=== PATIENT | female | born 1980 | race Caucasian/White ===

== ENCOUNTER 2017-12-09 19:40 | Emergency (ER) | payer OTHER ==
[~2017-12-09] VITALS: Ht 168.9 cm; Wt 192.7 kg
[~2017-12-09 19:40] MED LIST: ASPI81TA23 PO; CLIN300C5 PO; TYLETAB34 PO
[2017-12-09 19:50] VITALS: BP 194/91; PULSE 95; RESP 18; TEMP 98.4; O2SAT 95
--- NOTE | 2017-12-09 20:55 | PD ---
HPI Chief Complaint: Skin Problem Time Seen by Provider: 20:26 Travel History International Travel<30 days: No Contact w/Intl Traveler<30days: No Traveled to known affect area: No History of Present Illness HPI Patient 37-year-old female presents emergency department for evaluation of skin reddening to the right lower leg. Patient states been there for about 2 week, she was initially started on Keflex when I did not work she went to [facility] and she was started on clindamycin. She states is been taking it for about a week and has had no relief. She was told that if her symptoms warrant starting to get better that she should come here for consideration of IV antibiotics. No fevers no cough no congestion no history of long trips no history of DVTs. Patient states the first physician who prescribed her Keflex also did an ultrasound which showed no DVT and that was 2 weeks ago. States symptoms are mild, associated with pruritus, right lower leg, context as above PFSH Past Medical History Asthma: Yes Bipolar Disorder: Yes Anxiety: Yes Depression: Yes Diminished Hearing: No Fibromyalgia: Yes Hypertension: Yes ?: Not Ovarian Cysts: Yes Past Surgical History Cholecystectomy: Yes Other Surgery: Yes Social History Alcohol Use: No Tobacco Use: No Substance Use: No Allergies-Medications (Allergen,Severity, Reaction): Coded Allergies: No Known Allergies (Unverified , 12/03/17) Reported Meds & Prescriptions Reported Meds & Active Scripts Active Tylenol-Codeine #3 (Acetaminophen-Codeine) 300-30 mg Tab 1-2 Tab PO Q6H PRN Aspirin EC (Aspirin) 81 Mg Tabdr 162 Mg PO DAILY 14 Days Clindamycin (Clindamycin HCl) 300 Mg Cap 300 Mg PO TID 7 Days Review of Systems Except as stated in HPI: all other systems reviewed are Neg Physical Exam Narrative GENERAL: Well-nourished, well-developed patient. Morbidly obese SKIN: Focused skin assessment warm/dry. There is a small slightly discolored area of the right lower extremity over the lateral tibia, it does jose daniel when palpated but certainly is not warm to touch. Could represent a very mild cellulitis. I do not see any fluid collection or skin breakage areas. HEAD: Normocephalic. EYES: No scleral icterus. No injection or drainage. NECK: Supple, trachea midline. No JVD or lymphadenopathy. CARDIOVASCULAR: Regular rate and rhythm without murmurs, gallops, or rubs. RESPIRATORY: Breath sounds equal bilaterally. No accessory muscle use. GASTROINTESTINAL: Abdomen soft, non-tender, nondistended. MUSCULOSKELETAL: No cyanosis, difficult to assess if the patient's leg calibers are different in size secondary to her body habitus. BACK: Nontender without obvious deformity. No CVA tenderness. Data Data Last Documented VS Vital Signs Date Time Temp Pulse Resp B/P (MAP) Pulse Ox O2 Delivery O2 Flow Rate FiO2 12/09/17 19:50 98.4 95 18 194/91 (125) 95 Orders Orders Bedside Glucose [email or web address] (12/09/17 20:39) MDM Medical Decision Making Medical Screen Exam Complete: Yes Emergency Medical Condition: Yes Differential Diagnosis Cellulitis, sepsis highly unlikely, DVT, acanthosis nigricans. Narrative Course Patient roomed in the emergency department, she did have an ultrasound 2 weeks ago but still having symptoms I think warrants a repeat ultrasound at this time , also need to consider diabetes in this patient and have ordered a bedside glucose. My plan was if ultrasound was negative the patient appears well would add doxycycline and topical antifungal to follow-up with a primary care physician or safety admin assistant. She certainly is not septic and does not need any additional workup, consideration was given the IV antibiotics including Dalvance but I think that this is unwarranted at this time. Unfortunately prior to any of these studies being done the patient eloped stating that she had an emergency at home. I had no further chance to res counselor patient. Diagnosis Primary Impression: Rash Disposition: 07 AGAINST MEDICAL ADVICE (Eloped) Condition: Stable Bryon Omer MD Dec 09, 2017 20:55
== END 2017-12-09 22:55 | disposition left against medical advice (07) ==
LOC: NEPD 19:40
DX: R21 Rash and other nonspecific skin eruption (principal); E66.01 Morbid (severe) obesity due to excess calories; J45.909 Unspecified asthma, uncomplicated; F31.9 Bipolar disorder, unspecified; F41.9 Anxiety disorder, unspecified; I10 Essential (primary) hypertension; M79.7 Fibromyalgia
CPT/HCPCS: 99281

== ENCOUNTER → 2018-01-23 | Outpatient (CLI) | payer OTHER ==
[~2018-01-23] VITALS: Ht 167.6 cm; Wt 189.6 kg
[~2018-01-23] MED LIST changes: +ALBUAER3 INH; +BUPR150T3 PO; +BUSP10TA PO; +CHLORHEXIDINE GLUCONATE 2 % 1 PACK (2 CLOTHS) TOPICAL PRN; +CHOL1CAP34 PO; +CLAR10TA7 PO; -CLIN300C5 PO; +FLUT1INH INH; +FOLI1TAB6 PO; +GLYCOPYRROLATE 1 MG/5 ML SYRINGE IV PUSH ONE; +HYDR25TA5 PO; +KETAMINE HCL 50 MG/5 ML SYRINGE ONE; +LACTATED RINGER'S 1000 ML IV PRN; +LIDOCAINE HCL 1% PF 5 ML SYRINGE OTHER ONE; +METH2.5T PO; +METOPROLOL TARTRATE 25 MG TAB PO PRN; +MIDAZOLAM HCL 2 MG/2 ML VIAL ONE; +MONT10TA2 PO; +OXCA600T PO; +POTA-255 PO; +POVIDONE IODINE 5% (ANTISEPSIS KIT) 4 APPLICATIONS EACH NARE PRN; +RANI150T PO; +SODIUM CHLORID 0.9% 500 ML IV PRN; +TIOT1AER2 INH; +WELLTAB39 PO
[2018-01-23 10:45] LABS: BASOPHIL # 0.1 TH/MM3 (0-0.2); BASOPHIL % 0.9 % (0.0-2.0); EOSINOPHIL # 0.1 TH/MM3 (0-0.4); EOSINOPHIL % 1.7 % (0.0-4.0); HEMOGLOBIN 11.7 GM/DL (11.6-15.3); LYMPH % 18.2 % (9.0-44.0); LYMPHOCYTE # 1.5 TH/MM3 (1.0-4.8); MEAN CELL VOLUME 81.8 FL (80.0-100.0); MEAN CORPUSCULAR HEMOGLOBIN 27.2 PG (27.0-34.0); MEAN CORPUSCULAR HGB CONC 33.3 % (32.0-36.0); MEAN PLATELET VOLUME 10.1 FL (7.0-11.0); MONO % 4.3 % (0.0-8.0); MONOCYTE # 0.3 TH/MM3 (0-0.9); NEUT % 74.9 % (16.0-70.0); PLATELET COUNT 236 TH/MM3 (150-450); RED BLOOD COUNT 4.28 MIL/MM3 (4.00-5.30); RED CELL DISTRIBUTION WIDTH 15.4 % (11.6-17.2)
[2018-01-23 11:01] LABS: BICARBONATE 27.2 MEQ/L (21.0-32.0); CREATININE 0.89 MG/DL (0.50-1.00)
--- NOTE | 2018-01-23 12:07 | GIPROC ---
[facility] [address] [facility]. [facility], [address] EGD PROCEDURE REPORT EXAM DATE: 01/23/2018 PATIENT NAME: Angi Berrios MR #: [id number] BIRTHDATE: 1980 ATTENDING: Fransisco Hernandez MD ORDER #: [id number] PIPER INSTALLER: Vamsi Evans STATUS: outpatient INDICATIONS: The patient is a 37 yr old female here for an EGD due to history of esophageal reflux PROCEDURE PERFORMED: EGD w/ biopsy MEDICATIONS: None and Per Anesthesia. TOPICAL ANESTHETIC: Lidocaine [place] CONSENT: The patient understands the risks and benefits of the procedure and understands that these risks include, but are not limited to: sedation, allergic reaction, infection, perforation and/or bleeding. Alternative means of evaluation and treatment include, among others: physical exam, x-rays, and/or surgical intervention. The patient elects to proceed with this endoscopic procedure. medical equipment was checked for proper function. Hand hygiene and appropriate measures for infection prevention was taken. After the risks, benefits and alternatives of the procedure were thoroughly explained, Informed consent was verified, confirmed and timeout was successfully executed by the treatment team. The patient was anesthetized with topical anesthesia and the GTX [employer] [id number] endoscope was introduced through the mouth and advanced to the second portion of the duodenum. Noted gastritis. Esophagitis. Multiple biopsies were performed. Retroflexed views revealed no abnormalities The gastroscope was then slowly withdrawn and removed. ESOPHAGUS: The mucosa of the esophagus appeared normal. Multiple biopsies were performed. There was LA Class A esophagitis noted. STOMACH: There was gastritis. ADVERSE EVENTS: There were no complications. IMPRESSIONS: 1. The esophagus appeared normal; multiple biopsies were performed 2. There was LA Class A esophagitis noted 3. Retroflexed views revealed no abnormalities 4. Gastritis RECOMMENDATIONS: 1. Continue PPI 2. Await biopsy results. Biopsy results will not be ready for 7-10 days. If you don't hear from us in two weeks, call our office for biopsy results. PATIENT CONDITION: fair DISPOSITION: Home REPEAT EXAM: NONE Fransisco Hernandez MD eSigned: Fransisco Hernandez MD 01/23/2018 12:07 PM cc: Milton Santos M.D.
[2018-01-23 12:40] VITALS: BP 143/85; PULSE 97; RESP 20; TEMP 97.8; O2SAT 96
--- NOTE | 2018-01-23 15:14 | EKG ---
Date Performed: 01/23/2018 Time Performed: 09:36:31 PTAGE: 37 years EKG: Sinus rhythm NORMAL ECG NO PREVIOUS TRACING DOCTOR: Rosanna Fried Interpretating Date/Time 01/23/2018 15:13:46
== END ==
LOC: HSDC 09:08
PROVIDERS: ATTEND Surgery
DX: K21.0 Gastro-esophageal reflux disease with esophagitis (principal); K29.50 Unspecified chronic gastritis without bleeding; G47.30 Sleep apnea, unspecified; I10 Essential (primary) hypertension; E66.01 Morbid (severe) obesity due to excess calories; Z68.44 Body mass index [BMI] 60.0-69.9, adult; Z01.818 Encounter for other preprocedural examination; Z01.810 Encounter for preprocedural cardiovascular examination
CPT/HCPCS: 00731; 43239; 80048; 85025; 88305; 88312; 93005; J2250